=== PATIENT | female | born 1995 | race Caucasian/White ===

== ENCOUNTER 2019-11-18 21:46 | Emergency (ER) | payer OTHER ==
[~2019-11-18] VITALS: Ht 160 cm; Wt 95.7 kg
[2019-11-19 05:25] VITALS: BP 131/84
[2019-11-19] MEDS ORDERED: IBUPROFEN 800 MG TAB PO ONE (05:30)
[2019-11-19] MEDS ORDERED: TETANUS-DIPTH-ACEL PERTUSSIS 0.5ML SYRG IM ONE (05:45)
[2019-11-19] MEDS ORDERED: NEOMYCIN-BACITRACIN-POLYM 15GM TOP OINT TOP SCH (05:46)
== END 2019-11-19 06:38 | disposition home or self-care (01) ==
LOC: ER 21:46
DX: S60.011A Contusion of right thumb without damage to nail, initial encounter (principal); W26.0XXA Contact with knife, initial encounter; Y93.89 Activity, other specified; Y92.69 Other specified industrial and construction area as the place of occurrence of the external cause; Y99.8 Other external cause status
CPT/HCPCS: 90471; 90715